=== PATIENT | female | born 2000 | race American Indian/Alaskan Native ===

== ENCOUNTER 2020-10-30 12:17 | Emergency (ER) | payer OTHER ==
[2020-10-30 12:41] VITALS: BMI 22.8
[2020-10-30] MEDS ORDERED: SODIUM CHLORIDE 1,000 ML IV STA (13:39)
[2020-10-30] MEDS ORDERED: ACETAMINOPHEN 1000 MG/100 ML VIAL IVPB ONE (15:40)
[2020-10-30] MEDS ORDERED: ONDANSETRON 4 MG/2 ML VIAL IVPUSH ONE (15:40)
[2020-10-30] MEDS ORDERED: ACETAMINOPHEN INJECTION 100 ML IVPB ONE (15:49)
[2020-10-30] MEDS ORDERED: ONDANSETRON 4 MG/2 ML VIAL ONE (15:49)
[2020-10-30 16:02] LABS: BASO % 0.7 % (0-2.0); EOS % 0.6 % (0-4.5); HEMATOCRIT 38.2 % (32.4-45.2); HEMOGLOBIN 13.1 GM/dL (10.7-15.3); LYMPH % 11.7 % (8-40); MCH 27.8 pg (25.7-33.7); MCHC 34.4 g/dl (32.0-36.0); MEAN PLT VOLUME 8.1 fl (7.5-11.1); MONO % 9.7 % (3.8-10.2); NEUT % 77.3 % (42.8-82.8); PLATELET COUNT 242 10^3/uL (134-434); RBC 4.72 M/mm3 (3.60-5.2); RDW 14.3 % (11.6-15.6); WHITE BLOOD COUNT 5.7 K/mm3 (4.0-10.0)
[2020-10-30 16:24] LABS: ALBUMIN 3.7 g/dl (3.4-5.0); BLOOD UREA NITROGEN 11.6 mg/dL (7-18); CALCIUM 8.5 mg/dL (8.5-10.1)
[2020-10-30 16:27] LABS: CREATININE 0.9 mg/dL (0.55-1.3)
[2020-10-30 16:29] LABS: BILIRUBIN,TOTAL 0.6 mg/dL (0.2-1); TOT PROT 8.6 g/dl (6.4-8.2)
[2020-10-30 19:05] LABS: EPI CELLS 3 /uL (0-25.1); HYALINE CASTS 0 /uL (0-3.1); PH,URINE 6.5 (5.0-8.0); URINE APPEARANCE CLEAR; URINE BACTERIA 3 /uL (0-1359); URINE BILIRUBIN NEGATIVE (NEGATIVE); URINE COLOR YELLOW; URINE GLUCOSE (UA) NEGATIVE (NEGATIVE); URINE KETONE 1+ (NEGATIVE); URINE LEUK ESTERASE NEGATIVE (NEGATIVE); URINE NITRITE NEGATIVE (NEGATIVE); URINE PROTEIN NEGATIVE (NEGATIVE); URINE RBC 39 /uL (0-23.9); URINE UROBILINOGEN 0.2 mg/dL (0.2-1.0); URINE WBC 4 /uL (0-25.8)
[2020-10-30 19:22] LABS: HCG,QUALITATIVE URINE Negative
[2020-10-30 22:51] VITALS: BP 110/53; PULSE 90; TEMP 98.1
== END 2020-10-30 22:49 | disposition home or self-care (01) ==
LOC: JER 12:17
PROC: 3E0333Z Introduction of Anti-inflammatory into Peripheral Vein, Percutaneous Approach (ICD-10-PCS; principal; 2020-10-30)
PROC: 3E033GC Introduction of Other Therapeutic Substance into Peripheral Vein, Percutaneous Approach (ICD-10-PCS; 2020-10-30)
PROC: 3E0337Z Introduction of Electrolytic and Water Balance Substance into Peripheral Vein, Percutaneous Approach (ICD-10-PCS; 2020-10-30)
DX: J02.9 Acute pharyngitis, unspecified (principal)
CPT/HCPCS: 36415; 71275-TC; 80053; 81003; 84703; 85025; 85379; 87086; 87880; 93005; 93010; 96361; 96374; 96375; 99285-25; J0131; Q9967

== ENCOUNTER → 2023-01-18 | Emergency (ER) | payer OTHER ==
[2023-01-18 17:45] VITALS: BP 103/61; PULSE 82; RESP 17; TEMP 98.2; BMI 25.6
== END | disposition left against medical advice (07) ==
LOC: JERFT 17:29
DX: M79.662 Pain in left lower leg (principal)
CPT/HCPCS: 99281-25